=== PATIENT | male | born 1950 | race Caucasian/White ===

== ENCOUNTER 2018-10-19 15:23 | Emergency (ER) | payer BC ==
[~2018-10-19] VITALS: Ht 167.6 cm; Wt 68.0 kg
[2018-10-19 15:40] VITALS: Ht 167.6 cm; Wt 68.0 kg
[2018-10-19 16:59] LABS: BASOPHIL % 0.4 % (0-2); PLATELET COUNT 239 x10^3mcL (130-400)
[2018-10-19 17:01] LABS: CALCIUM 8.9 mg/dL (8.5-10.1); CARBON DIOXIDE 26.8 mmol/L (21-32); CHLORIDE SERUM 103 mmol/L (98-107); CREATININE SERUM 1.2 mg/dL (0.7-1.3); GFR1 > 60 mL/min; GLUCOSE SERUM 250 mg/dL (74-106); SODIUM SERUM 139 mmol/L (136-145)
[2018-10-19 17:20] LABS: ALBUMIN 3.4 g/dL (3.4-5.0); ALKALINE PHOSPHATASE 38 U/L (46-116); ALT/SGPT 31 U/L (16-63); AST/SGOT 15 U/L (15-37); BILIRUBIN TOTAL 0.27 mg/dL (0.20-1.00); LIPASE 204 IU/L (73-393); MAGNESIUM 1.1 mg/dL (1.8-2.4); T4(THYROXINE) 5.5 ug/dL (4.7-13.3); TOTAL PROTEIN, SERUM 6.8 g/dL (6.4-8.2)
[2018-10-19 17:21] LABS: CHOLESTEROL 98 mg/dL (<200); HDL CHOLESTEROL 27 mg/dL (40-60)
[2018-10-19 18:13] LABS: UA SPECIFIC GRAVITY 1.025 (1.005-1.035); microscopic required? YES; urine erythrocyte 1+ (NEGATIVE)
[2018-10-19 18:34] LABS: AMPHETAMINE QUAL UR NONE DETECTED (See below)
[2018-10-19 19:49] VITALS: BP 126/71
== END 2018-10-19 19:49 | disposition home or self-care (01) ==
LOC: ED 15:23
PROVIDERS: Emergency Medicine
DX: S70.01XA Contusion of right hip, initial encounter (principal); S09.8XXA Other specified injuries of head, initial encounter; N39.0 Urinary tract infection, site not specified; G81.91 Hemiplegia, unspecified affecting right dominant side; R47.01 Aphasia; I10 Essential (primary) hypertension; E11.9 Type 2 diabetes mellitus without complications; E78.00 Pure hypercholesterolemia, unspecified; I48.91 Unspecified atrial fibrillation; Z86.73 Personal history of transient ischemic attack (TIA), and cerebral infarction without residual deficits; W18.30XA Fall on same level, unspecified, initial encounter; Y93.89 Activity, other specified; Y92.89 Other specified places as the place of occurrence of the external cause; Y99.8 Other external cause status
CPT/HCPCS: 36415; 82962; 83880; 90715; Q0092

== ENCOUNTER 2019-06-03 08:19 | Inpatient (IN) | payer OTHER, BC ==
[~2019-06-03] VITALS: Ht 177.8 cm; Wt 82.1 kg
--- NOTE | 2019-06-03 08:57 | NUR ---
PT PRESENTS TO ED BIBA WITH C/O INTERMITTENT CP SINCE YESTERDAY. PER EMS PT WAS C/O SHARP CP 6/10 THIS MORNING. PER EMS PT WAS GIVEN 324MG ASPRIN, AND 1 NITRO. PT STATED 0/10 AFTER MEDICATION. EMS STS PT BLOOD GLUCOSE WAS 215, AND VSS IN ROUTE TO ED. PER EMS PT HAS CVA SOMETIME LAST YEAR AND HAS RIGHT SIDED DEFICITS WITH APHASIA. PT STS HE USES WHEELCHAIR AT HOME. PT AAXO4, RESP E/U, ON FULL CM, NO ACUTE DISTRESS NOTED AT THIS TIME.
[2019-06-03 09:10] LABS: BASOPHIL % 0.7 % (0-2); PLATELET COUNT 217 x10^3mcL (130-400)
[2019-06-03 09:12] LABS: RED CELL DISTRIBUTION WIDTH 15.1 % (11.5-14.5)
[2019-06-03 09:32] LABS: CALCIUM 9.2 mg/dL (8.5-10.1); CARBON DIOXIDE 26.4 mmol/L (21-32); CREATININE SERUM 1.4 mg/dL (0.7-1.3); POTASSIUM SERUM 4.2 mmol/L (3.5-5.1)
[2019-06-03 09:36] LABS: ALBUMIN 3.6 g/dL (3.4-5.0); BILIRUBIN TOTAL 0.35 mg/dL (0.20-1.00); CHOLESTEROL/HDL RATIO 3.6; T3 TOTAL 0.86 ng/mL; TOTAL PROTEIN, SERUM 7.3 g/dL (6.4-8.2)
[2019-06-03 09:38] LABS: FREE T4 0.96 ng/dL (0.76-1.46); FREE THYROXINE INDEX 2.1 ug/dL (1.4-4.5); T4(THYROXINE) 5.6 ug/dL (4.7-13.3)
--- NOTE | 2019-06-03 09:39 | NUR ---
PT DAUGHTER AT BEDSIDE. PER DAUGHTER PT HAS MINOR CVA 2016 WITH NO DEFICITS AND HAD MAJOR CVA JUL 2018 LEAVING HIM WITH RT SIDED DEFICITS AND EXPRESSIVE APHASIA. PER DAUGHTER PT WAS SEEN BY PCP A COUPLE DAYS AGO FOR C/O CP. DAUGHTER STS PCP TO EKG AND TOLD PT TO F/U WITH ECHO TECHNICIAN IN JUNE.
--- NOTE | 2019-06-03 09:41 | NUR ---
PT ASSISTED WITH USE OF URINAL. PT UNABLE TO PROVIDE URINE SAMPLE.
[2019-06-03] MEDS ORDERED: ALLOPURINOL100 MG PO (10:46)
[2019-06-03] MEDS ORDERED: URE25 PO (10:47)
[2019-06-03] MEDS ORDERED: LIPITOR80 MG PO (10:47)
[2019-06-03] MEDS ORDERED: ELIQUIS5 MG PO (10:48)
[2019-06-03] MEDS ORDERED: BROMOCRIPTINE2.5 MG PO (10:48)
[2019-06-03] MEDS ORDERED: FENOFIBRATE145 M1 PO (10:48)
[2019-06-03] MEDS ORDERED: COLACE100 MG PO (10:48)
[2019-06-03] MEDS ORDERED: MELATONIN10 M1 PO (10:49)
[2019-06-03] MEDS ORDERED: FLUOXETINE HYDR20 M2 PO (10:49)
[2019-06-03] MEDS ORDERED: LANTUS SOLOS100 U/M1 SC (10:49)
[2019-06-03] MEDS ORDERED: GLU850 PO (10:50)
[2019-06-03] MEDS ORDERED: METOPROLOL TART25 M1 PO (10:50)
[2019-06-03] MEDS ORDERED: PANTOPRAZOLE SO40 M1 PO (10:51)
[2019-06-03] MEDS ORDERED: FLOMAX0.4 MG PO (10:51)
[2019-06-03] MEDS ORDERED: VITAMIN D50000 I4 PO (10:52)
--- NOTE | 2019-06-03 11:15 | NUR ---
REPORT GIVEN TO SHASHANK LI ON TELE UNIT TO ASSUME CARE OF PT.
[2019-06-03 11:24] LABS: MAGNESIUM 1.2 mg/dL (1.8-2.4)
[2019-06-03 12:02] VITALS: BP 179/82
--- NOTE | 2019-06-03 12:42 | NUR ---
PATIENT COMPLAINED OF SHARP CHEST PAIN, PS 6/, TELE [address] ELEVATION. MORPHINE IVP GIVEN. WILL CONTINUE TO MONITOR PAIN.
--- NOTE | 2019-06-03 13:35 | NUR ---
RECEIVED PATIENT AOX4, NOT IN DISTRESS, CTA ON BLF, TELE 14, NSR, PALPABLE PULSES, NO EDEMA, NO CHEST PAIN, NO CHILLS, GENERALIZED WEAKNESS, LIMITED R SIDED MOBILITY, R SIDED WEAKNESS FROM STROKE HISTORY LAST 2016 AND JUL 2018, +BS, ABLE TO VOID WITH NO DYSURIA, IV INTACT AND PATENT TO LFA. IV INFUSING WELL WITH NO REDNESS OR INFILTRATION. CALL LIGHT WITHIN REACH. BED AT LOWEST POSITION.
--- NOTE | 2019-06-03 13:38 | NUR ---
MRSA SPECIMEN COLLECTED
--- NOTE | 2019-06-03 14:13 | NUR ---
SEEN AOX4, NOT IN DISTRESS, MGSO4 IVPB INFUSING WELL AT 27CC/HR. FLU VACCINE IM GIVEN TO R ARM. CALL LIGHT WITHIN REACH. BED AT LOWEST POSITION.
[2019-06-03] MEDS ORDERED: LANTUS SOLOS100 U/M1 SQ (14:33)
--- NOTE | 2019-06-03 14:44 | NUR ---
SEEN AOX4, NOT IN DISTRESS, PNEUMOVAX IM GIVEN.
[2019-06-03 16:55] VITALS: BP 157/80
[2019-06-03 17:18] LABS: microscopic required? YES; urine erythrocyte 2+ (NEGATIVE)
--- NOTE | 2019-06-03 19:27 | NUR ---
DR SOLITARIO MADE AWARE OF MAGNESIUM RESULTS 1.2. PER DR SOLITARIO SHE WILL MAKE ROUNDS AND FOLLOW UP WITH RESULTS EVERY 1-2 HOURS
--- NOTE | 2019-06-03 19:29 | NUR ---
GAVE REPORT TO REGISTRY NURSE STEPHANY
[2019-06-03 21:02] VITALS: BP 164/67
[2019-06-04] VITALS (7 sets, daily range): BP systolic 128–176; BP diastolic 69–85; Ht 177.8 cm; Wt 82.1 kg
--- NOTE | 2019-06-04 00:04 | NUR ---
HEAD TO TOE ASSESSMENT DONE AT THE BEGINNING OF THE SHIFT, PT DENIES ANY PAIN OR DISCOMFORT, PT'S BLOOD SUGAR AT HS WAS 179, 3 UNITS OF REGULAR INSULIN WAS GIVEN SUBQ PER SLIDING SCALE. PT WATCHING TV WHEN ASSESSED PT, WILL CONTINUE TO MONITOR FOR SAFETY.
[2019-06-04 06:44] LABS: BASOPHIL % 0.3 % (0-2); PLATELET COUNT 216 x10^3mcL (130-400)
[2019-06-04 06:48] LABS: CARBON DIOXIDE 26.1 mmol/L (21-32); CREATININE SERUM 1.4 mg/dL (0.7-1.3); POTASSIUM SERUM 3.7 mmol/L (3.5-5.1)
[2019-06-04 07:08] LABS: RED CELL DISTRIBUTION WIDTH 14.8 % (11.5-14.5)
--- NOTE | 2019-06-04 07:30 | NUR ---
RECEIVED PATIENT RESTING IN BED, NO ACUTE DISTRESS NOTED. PATIENT DENIES CHEST PAIN. PATIENT A/OX 4, DYSARTHIA & APHASIA. PATIENT HAS HISTORY OF STROKE IN 2017, AND JUL 2018. RIGHT SIDED WEAKNESS NOTED. PATIENT ABLE TO MAKE NEEDS KNOW WITH VERBALIZING AND GESTURING. PATIENT DENIES HEADACHE AND DIZZINESS. PULSE + X4, NO EDEMA NOTED. LUNG SOUNDS CTA. PATIENT ABLE TO VOID WITH PERIODS OF INCONTINENCE. IV TO LFA 20G CDI&PATENT, NO S/S OF INFILTRATION. CALL LIGHT WITIN REACH, BED IN LOW POSITION, WILL CONTINUE TO MONITOR.
--- NOTE | 2019-06-04 10:00 | NUR ---
STAR LEON MADE AWARE PATIENT BP WAS ELEVATED TO 176/85 HR 90, BP MEDS WERE GIVEN AND NEW BP WAS 160/76 HR 86. PATIENT DENIES CHEST PAIN, HEADACHE, AND DIZZINESS. NO FURTHER ORDERS AT THIS TIME, WILL CONTINUE TO MONITOR.
--- NOTE | 2019-06-04 12:00 | NUR ---
STAR LEON MADE AWARE PATIENT BACK AND CHEST SHOWED REDNESS WITH SMALL VESICLE. STAR LEON WILL ORDER AN ACYCLOVIR AND ORDERED TO PLACE PATIENT ON AIRBONE PRECAUTIONS. WILL CARRY OUT ORDERS.
--- NOTE | 2019-06-04 12:15 | NUR ---
CHARGE NURSE MARTY MADE AWARE, PATIENT HAS SHINGLES AND IS AIRBORNE PRECAUTION. PATIENT WILL BE TRANSFERRED TO [facility], TO BE PLACED IN NEGATIVE PRESSURE ROOM.
--- NOTE | 2019-06-04 13:26 | NUR ---
REPORT GIVEN TO SHASHANK JOHNSON.
--- NOTE | 2019-06-04 13:30 | NUR ---
RECEIVED PATIENT. NO ACUTE RESP DISTRESS NOTED. REMAINS ON ROOM AIR. CLEAR LUNG SOUNDS. AAOX4. PATIENT HAS DYSARTHIA/APHASIA AND R SIDED WEAKNESS FROM HISTORY OF STROKE IN 2017 AND JUL 2018. REORIENTED PATIENT TO ROOM. PATIENT ON TELE 14, NSR. NO EDEMA NOTED. PULSES PALPABLE AND PRESENT. NS 50 ML/HR RUNNING TO LFA. NO INFILTRATION NOTED. PATIENT PLACED ON AIRBORNE ISOLATION FOR VERIFIED SHINGLES. SAFETY PRECAUTION IN PLACE. CALL LIGHT WITHIN REACH. WILL CONTINUE TO MONITOR.
--- NOTE | 2019-06-04 15:30 | NUR ---
PATIENT IN BED, STABLE. NO ACUTE RESPIRATORY DISTRESS NOTED. REMAINS ON ROOM AIR. NO C/O PAIN AT THIS TIME. EDUCATED VISITOR ABOUT PROPER PPE FOR AIRBORNE PRECAUTION. ASSISTED VISITOR WITH PUTTING IT ON AND VERBALIZED UNDERSTANDING FOR THE PURPOSE OF PPE. IV INTACT AND PATENT. NO INFILTRATION NOTED. SAFETY PRECAUTION IN PLACE. CALLLIGHT WITHIN REACH. WILL CONTINUE TO MONITOR.
--- NOTE | 2019-06-04 16:20 | NUR ---
SPOKE WITH FAMILY MEMBER, BECKIE VIA PHONE. BECKIE IS AKING ABOUT PLAN OF CARE AND REQUESTING TO SPEAK WITH DR. THOMAS DIRECTLY. INFORMED BECKIE THAT I WILL FOLLOW UP ECHO RESULTS AND WILL INFORM DR. THOMAS ABOUT REQUEST TO SPEAK WITH HER. ALSO EDUCATED FAMILY TO CONSULT CARE IF ANY SYMPTOMS OCCUR FROM EXPOSURE TO PATIENT SHINGLES. BECKIE VERBALIZED UNDERSTANDING. WILL CONTINUE TO MONITOR PATIENT.
--- NOTE | 2019-06-04 16:37 | NUR ---
SPOKE WITH DR. THOMAS REGARDING PATIENT FAMILY, BECKIE REQUEST TO BE CALLED DIRECTLY BY DR. THOMAS REGARDING PLAN OF CARE. PER DR. THOMAS, HE WILL CALL BECKIE AND SPEAK WITH HER REGARDING CARE. NO NEW ORDERS AT THIS TIME.
--- NOTE | 2019-06-04 17:20 | NUR ---
PATIENT COMPLAINING OF SHINGLES ASSOCIATED PAIN TO CHEST AND BACK 12/23. NORCO 7.5 MG PO GIVEN. TOLERATED WELL. WILL CONTINUE TO MONITOR.
--- NOTE | 2019-06-04 19:11 | NUR ---
PATIENT IN BED, NO ACUTE RESP DISTRESS NOTED. REMAINS ON ROOM AIR. STILL ON AIRBONE PRECAUTION FOR SHINGLES. NO C/O PAIN AT THIS TIME. IV INTACT AND PATENT. NO INFILTRATION NOTED. SAFETY PRECAUTION IN PLACE. CALL LIGHT WITHIN REACH. ENDORSED CARE TO [employer]TER BUS DRIVER NURSE AND NEED TO NOTIFY BECKIE IF ANY CHANGES TO PLAN OF CARE OCCURS.
--- NOTE | 2019-06-04 19:55 | NUR ---
RECEIVED AWAKE IN BED WATCHING TV. SKIN WARM AND DRY TO TOUCH .RESPIRATION EVEN AND UNLABORED.ON TELE #14 WITH SR, DENIES ANY CHEST PAIN/DISCOMFORT. IV ACCESS AT THE LFA INTACT WITH IVF NS AT 50ML/HR FOR HYDRATION INTACT AND PATENT. PLACED CALL LIGTH WITHIN REACG INSTRUCTED TO CALL FOR ANY ASSISTANCE NEEDED AND VERBALIZED UNDERSTANDING. T
--- NOTE | 2019-06-05 00:01 | NUR ---
EYES CLOSED, NO FACIAL GRIAMCING NOTED. RESPIRATION EVEN AND UNLABORED. NO S/S OF PAIN/DISCOMFORT.
--- NOTE | 2019-06-05 02:00 | NUR ---
STARTED ON ROCEPHIN 1GM IVPB FOR EMPIRIC MANAGEMENT OF UTI. NO ADVERSE REACTION NOTED. ORAL FLUID TOLERATING WELL.
--- NOTE | 2019-06-05 05:15 | NUR ---
BLOOD SUGAR=58MG/DL, D50 50ML IVP GIVEN PROTOCOL. NO S.S OF GLYCEMIC REACTION.
--- NOTE | 2019-06-05 06:00 | NUR ---
BLOOD SUGAR RECHEECKED 146MG/DL, INCONTINENT OF BLADDER FUNCTION. PARTIAL BED ABTH GIVEN BY YEIMI ASSSIGNED. KEPT CLEAN AND DRY. ALL NEEEDS ATTENDED.
[2019-06-05 06:10] VITALS: BP 158/76
[2019-06-05 06:31] LABS: BASOPHIL % 0.4 % (0-2); PLATELET COUNT 193 x10^3mcL (130-400)
[2019-06-05 06:41] LABS: RED CELL DISTRIBUTION WIDTH 15.1 % (11.5-14.5)
[2019-06-05 06:55] LABS: CALCIUM 8.8 mg/dL (8.5-10.1); CARBON DIOXIDE 26.5 mmol/L (21-32); CREATININE SERUM 1.3 mg/dL (0.7-1.3); MAGNESIUM 1.8 mg/dL (1.8-2.4); POTASSIUM SERUM 3.9 mmol/L (3.5-5.1)
--- NOTE | 2019-06-05 07:40 | NUR ---
RECEIVED PATIENT RESTING IN BED, NO ACUTE DISTRESS NOTED. PATIENT DENIES PAIN AT THIS TIME. PATIENT A/OX4, DYSARTHIA AND APHASIA NOTED. PATIENT ABLE TO MAKE NEEDS KNOW. RIGHT SIDED WEAKNESS NOTED, HX OF STROKE. TELE MONITOR IN PLACE. PATIENT DENIES SOB, LUNG SOUNDS CTA. PATIENT VOIDS FREELY, INCONTINENT AT TIMES. RASH AND VESICLE NOTED TO LEFT CHEST AND BACK. SCABS NOTED TO BUE. NS IV INFUSING TO LFA AT 50ML/HR, IV SITE CDI&PATENT. CALL LIGHT WITHIN REACH, BED IN LOW POSITION, WILL CONTINUE TO MONITOR.
[2019-06-05 08:55] VITALS: BP 139/52
[2019-06-05 12:27] VITALS: BP 151/89
--- NOTE | 2019-06-05 13:20 | NUR ---
PATIENT SITTING UP AT BEDSIDE EATING MEAL, NO ACUTE DISTRESS NOTED. PATIENT TOLERATING MEAL WELL, REQUIRED ASSISTANCE IN SETTING UP TRAY. PATIENT DENIES PAIN AT THIS TIME. CALL LIGHT WITHIN REACH, WILL CONTINUE TO MONITOR.
[2019-06-05 16:00] VITALS: BP 140/65
--- NOTE | 2019-06-05 17:00 | NUR ---
ABX GIVEN AT THIS TIME. NO ACUTE DISTRESS NOTED, PATIENT DENIES PAIN. NO RESP. DISTRESS NOTED, DENIES SOB. ALL NEEDS MET AT THIS TIME. CALL LIGHT WITHIN REACH, BED IN LOW POSITION, WILL ENDORSE REPORT.
--- NOTE | 2019-06-05 19:05 | NUR ---
REPORT RECEIVED FROM DAY SHIFT RN. PATIENT WAS SEEN RESTING IN BED COMFORTABLY. AIRBORNE AND CONTACT PRECAUTIONS IN PLACE. NO DISTRESS NOTED. A/OX4, APHASIA. RIGHT SIDED WEAKNESS. DENIES CHEST PAIN. BREATHING EVEN AND UNLABORED ON ROOM AIR. NO SOB NOTED. IV TO THE LFA INFUSING WELL. PATENT AND INTACT. NO REDNESS OR SWELLING NOTED. COMFORT AND SAFETY MEASURES IS PLACE. BED IS LOCKED AND IN THE LOWEST POSITION. SIDE RAILS UP X2. CALL LIGHT IS WITHIN REACH. WILL CONTINUE TO MONITOR.
[2019-06-05 20:45] VITALS: BP 150/62
--- NOTE | 2019-06-06 00:39 | NUR ---
PATIENT RESTING IN BED WITH EYE CLOSED. NO DISTRESS NOTED NO S/S OF PAIN NOTED. BREATHING E/U. IVF INFUSING WELL. SAFETY MEASURES IS PLACE. CALL LIGHT IS WITHIN REACH. WILL CONTINUE TO MONITOR.
[2019-06-06 04:32] VITALS: BP 165/70
--- NOTE | 2019-06-06 04:32 | NUR ---
BP HIGH 165/70 (88), HR 71. NO PRN MEDS. NOTIFIED DR BO
--- NOTE | 2019-06-06 04:32 | NUR ---
BP 165/70 (88), HR 71. NO PRN BP MEDS. NOTIFIED DR BO. AWAITING ORDERS.
[2019-06-06 05:54] VITALS: BP 156/78
--- NOTE | 2019-06-06 05:54 | NUR ---
BP REASSESS 156/78, HR 70. APRESOLINE NOTED GIVEN.
--- NOTE | 2019-06-06 06:07 | NUR ---
BS 68/78. OJ X2 AND NOAM CRACKERS GIVEN. PATIENT ALSO HAD JELLO AND 1 OJ DURING THE NIGHT. WILL REASSESS BS.
--- NOTE | 2019-06-06 06:28 | NUR ---
BS REASSESSED; 106. NO DISTRESS NOTED. BREATHING EVEN AND UNLABORED. RESTED IN SHORT INTERVALS THROUGHOUT THE NIGHT. AIRBORNE AND CONTACT PRECAUTIONS MAINTAINED. IVF INFUSING WELL. ALL NEEDS AND CONCERNS ADDRESSED. CALL LIGHT WITHIN REACH. SAFETY MEASURES IN PLACE. WILL ENDORSED CARE TO DAY SHIFT RN
--- NOTE | 2019-06-06 07:00 | NUR ---
RECIEVED PT RESTING IN BED WITH NO C/O ANY PAIN, DISTRESS, OR SOB. PT A/O X4. SPEECH IMPEDEMENT AND RIGHT SIDED WEAKNESS D/T PREVIOUS STROKE. LUNGS CTAB. PT ON AIRBORNE PRECAUTIONS FOR SHINGLES. NS RUNNING 50ML/HR IN LFA, CDI AND PATENT. SAFETY PRECAUTIONS IN PLACE, CALL LIGHT WITHIN REACH, WILL MONITOR.
[2019-06-06 07:06] LABS: BASOPHIL % 0.5 % (0-2); PLATELET COUNT 209 x10^3mcL (130-400)
[2019-06-06 07:17] LABS: RED CELL DISTRIBUTION WIDTH 14.9 % (11.5-14.5)
[2019-06-06 07:24] LABS: CALCIUM 8.9 mg/dL (8.5-10.1); CARBON DIOXIDE 24.6 mmol/L (21-32); CREATININE SERUM 1.3 mg/dL (0.7-1.3); POTASSIUM SERUM 3.8 mmol/L (3.5-5.1)
[2019-06-06] MEDS ORDERED: ACYCLOVIR800 MG PO (09:14)
[2019-06-06] MEDS ORDERED: NORCO1 TA2 PO (09:28)
[2019-06-06 10:11] VITALS: BP 108/67
--- NOTE | 2019-06-06 12:28 | NUR ---
PT STABLE WITH NO C/O PAIN OR DISTRESS. SAFETY PRECAUTIONS IN PLACE, CALL LIGHT WITHIN REACH, WILL MONITOR.
[2019-06-06 12:36] VITALS: BP 148/72
--- NOTE | 2019-06-06 12:44 | NUR ---
CALLED TO [facility] AND SPOKE W/ GENNA AND INFORMED THAT THE PATIENT IS D/C TODAY AND W/ PRESCRIPTION ACYCLOVIR PO AND ASKED FOR THE ROOM NO.PATIENT GOING AND SHE STATED PATIENT GOING TO [id number]. REPORT GIVEN TO MING ENCARNACION.
[2019-06-06 13:06] VITALS: BP 108/67
--- NOTE | 2019-06-06 14:05 | NUR ---
PT OK TO DISCHARGE TODAY PER MD ORDER. REPORT CALLED IN TO [facility] [phone]. ALL QUESTIONS, CONCERNS, AND DISCHARGE INFORMATION ADDRESSED.
--- NOTE | 2019-06-06 15:31 | NUR ---
NORCO GIVEN PER EMAR FOR C/O 12/23 PAIN, WILL REASSESS.
--- NOTE | 2019-06-06 18:53 | NUR ---
PT STABLE TO DISCHARGE PER MD ORDER. ALL DISCHARGE INSTRUCTIONS, EDUCATION, AND PRESCRIPTIONS GIVEN TO PT AND DAUGHTER BECKIE. BOTH VERBALIZE UNDERSTANDING. FORMS SIGNED. IV REMOVED WITH CATHETER INTACT, NO REDNESS OR INFLAMMATION NOTED. PICTURES TAKEN OF RASHES AND WOUNDS. ID BAND REMOVED FROM PT. PT SAFELY POSITIONED IN WC AND ESCORTED DOWN TO LOBBY BY TECH AND DAUGHTER. ALL PERSONAL BELONGINGS IN HAND. NO DISTRESS NOTED.
== END 2019-06-06 18:40 | disposition home or self-care (01) | DRG 595 ==
LOC: ED 08:19 → DU 10:44 → MU 11:57 → DU 12:27 → MU 06-05 14:56
PROVIDERS: Specialist; ADMIT Family Medicine
DX: B02.9 Zoster without complications (principal); N17.0 Acute kidney failure with tubular necrosis; I69.351 Hemiplegia and hemiparesis following cerebral infarction affecting right dominant side; I69.322 Dysarthria following cerebral infarction; E83.42 Hypomagnesemia; I48.0 Paroxysmal atrial fibrillation; I10 Essential (primary) hypertension; E11.9 Type 2 diabetes mellitus without complications; E78.00 Pure hypercholesterolemia, unspecified; I25.2 Old myocardial infarction; Z79.01 Long term (current) use of anticoagulants; Z79.4 Long term (current) use of insulin; Z79.84 Long term (current) use of oral hypoglycemic drugs; Z68.28 Body mass index [BMI] 28.0-28.9, adult; Z99.3 Dependence on wheelchair
CPT/HCPCS: 82962; 83880; 84439; 90658; 90732; 97116-GP; G0378; J0133; J0696; J1815; J2270; J3475; J3490; J7030; Q0092